=== PATIENT | female | born 2000 | race Caucasian/White ===

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

== ENCOUNTER 2020-05-22 23:24 | Emergency (ER) | payer BC ==
[~2020-05-22] VITALS: Ht 160 cm; Wt 80.0 kg
[~2020-05-22 23:24] MED LIST changes: +AMOX500C2 PO; +NEOM15OI TP; +OFLO5DRO33 RIGHT EAR; +SULF1TAB35 PO
[2020-05-23] MEDS ORDERED: FAMOTIDINE 20MG/2ML IV (PEPCID) IV STA (00:13)
[2020-05-23] MEDS ORDERED: LIDOCAINE 2% VISCOUS 15 ML UDC PO ONE (00:15)
[2020-05-23] MEDS ORDERED: ONDANSETRON 4 MG/2 ML (SDV) Z0FRAN IVP ONE (00:15)
[2020-05-23] MEDS ORDERED: LACTATED RINGERS 1,000 ML IV ONE (00:15)
[2020-05-23] MEDS ORDERED: ANTACID SUSP 30 ML UDC (MYLANTA) PO ONE (00:15)
--- NOTE | 2020-05-23 00:21 | ED Abdominal Pain ---
General Stated Complaint: ABD PAIN Source of Information: Patient Exam Limitations: No Limitations History of Present Illness Date Seen by Provider: May 22, 2020 Time Seen by Provider: 23:28 Initial Comments The patient presents to the ER by I private conveyance with her significant other chief complaint of right upper quadrant abdominal pain waking her from sleep around 1015. She ate jambalaya about 5:00 last night. She has no history of surgeries on her abdomen but she did have a pilonidal cyst done surgically. She is having some nausea with vomiting. She did not take any medicines because she is afraid she would vomit them back up. No significant history of medical problems or abdominal pain. She is on Loestrin oral contraceptives with her last menstrual period about 2 or 3 weeks ago she says. No fever or chills but she was shaking. She took her temperature and says it was normal. No diarrhea or constipation. Last oral intake was 1700. No sick contacts. Her significant other is not having any symptoms. She went to the bathroom and was able to pass gas but did not have any stool tonight and this did not give her any relief of pain. She rates the pain is about a 8 out of 10. She compares it to childbirth pain, cramping waxing and waning. Allergies and Home Medications Allergies Coded Allergies: No Known Drug Allergies (Unverified , 01/25/11) Home Medications Amoxicillin 500 Mg Capsule, 500 MG PO TID Prescribed by: FRANKY TEIXEIRA on 05/07/182006 Ofloxacin 5 Ml Drops, 5 DROPS RIGHT EAR BID Prescribed by: FRANKY TEIXEIRA on 05/07/182006 Patient Home Medication List Home Medication List Reviewed: Yes Review of Systems Review of Systems Constitutional: No chills, No fever, No malaise EENTM: No Blurred Vision, No Double Vision Respiratory: Denies Cough Cardiovascular: Denies Chest Pain, Denies Lightheadedness Gastrointestinal: Denies Constipated, Denies Diarrhea Genitourinary: Denies Burning, Denies Discharge Musculoskeletal: No back pain, No joint pain Skin: No pruritus, No rash Psychiatric/Neurological: Denies Depressed, Denies Headache All Other Systems Reviewed Negative Unless Noted: Yes Past Eedljxe-Jgugmq-Myvvpz Hx Patient Social History Alcohol Use: Rarely Uses Alcohol Beverage of Choice: Beer Drug of Choice: Denies Smoking Status: Never a Smoker 2nd Hand Smoke Exposure: No Recent Hopitalizations: No Immunizations Up To Date Tetanus Booster (TDap): Unknown PED Vaccines UTD: Yes Seasonal Allergies Seasonal Allergies: No Past Medical History Surgeries: Yes (i/d) Respiratory: No Cardiac: No Neurological: No Genitourinary: No Gastrointestinal: No Musculoskeletal: No Endocrine: No HEENT: No Cancer: No Psychosocial: No Integumentary: Yes Recent Skin Changes Blood Disorders: No Family Medical History Diabetes mellitus 19 FATHER 19 MOTHER Hypertension 19 FATHER 19 MOTHER No Pertinent Family Hx Physical Exam Vital Signs Vital Signs - First Documented 05/23/20 00:20 Temp 35.4 Pulse 107 Resp 18 B/P (MAP) 152/93 (112) Pulse Ox 99 O2 Delivery Room Air Capillary Refill : Height/Weight/BMI Height: 5'4.00" Weight: 180lbs. 0oz. 81.781178eo; 28.12 BMI Method:Stated General Appearance: WD/WN, moderate distress HEENT: PERRL/EOMI, pharynx normal Neck: full range of motion, normal inspection Respiratory: lungs clear, normal breath sounds, no respiratory distress, no accessory muscle use Cardiovascular: normal peripheral pulses, regular rate, rhythm Peripheral Pulses: 2+ Radial Pulses (R), 2+ Radial Pulses (L) Gastrointestinal: normal bowel sounds (Active), guarding, tenderness (Right u pper quadrant and epigastric region tender to palpation. Positive Acosta sign. Negative Rovsing sign, McBurney's point rebound tenderness, psoas sign or other mesenteric signs) Neurologic/Psychiatric: alert, normal mood/affect, oriented x 3 Skin: normal color, warm/dry Progress/Results/Core Measures Results/Orders Lab Results Laboratory Tests Test 05/23/20 00:18 05/23/20 00:25 Range/Units White Blood Count 9.0 4.3-11.0 10^3/uL Red Blood Count 5.10 3.80-5.11 10^6/uL Hemoglobin 13.7 11.5-16.0 g/dL Hematocrit 42 35-52 % Mean Corpuscular Volume 83 80-99 fL Mean Corpuscular Hemoglobin 27 25-34 pg Mean Corpuscular Hemoglobin Concent 33 32-36 g/dL Red Cell Distribution Width 12.2 10.0-14.5 % Platelet Count 332 130-400 10^3/uL Mean Platelet Volume 9.3 9.0-12.2 fL Immature Granulocyte % (Auto) 1 % Neutrophils (%) (Auto) 52 42-75 % Lymphocytes (%) (Auto) 37 12-44 % Monocytes (%) (Auto) 6 0-12 % Eosinophils (%) (Auto) 3 0-10 % Basophils (%) (Auto) 1 0-10 % Neutrophils # (Auto) 4.7 1.8-7.8 10^3/uL Lymphocytes # (Auto) 3.3 1.0-4.0 10^3/uL Monocytes # (Auto) 0.6 0.0-1.0 10^3/uL Eosinophils # (Auto) 0.3 0.0-0.3 10^3/uL Basophils # (Auto) 0.1 0.0-0.1 10^3/uL Immature Granulocyte # (Auto) 0.1 0.0-0.1 10^3/uL Sodium Level 140 135-145 MMOL/L Potassium Level 3.6 3.6-5.0 MMOL/L Chloride Level 107 98-107 MMOL/L Carbon Dioxide Level 23 21-32 MMOL/L Anion Gap 10 5-14 MMOL/L Blood Urea Nitrogen 10 7-18 MG/DL Creatinine 0.77 0.60-1.30 MG/DL Estimat Glomerular Filtration Rate > 60 BUN/Creatinine Ratio 13 Glucose Level 107 H 70-105 MG/DL Calcium Level 8.8 8.5-10.1 MG/DL Corrected Calcium 8.9 8.5-10.1 MG/DL Total Bilirubin 0.3 0.1-1.0 MG/DL Aspartate Amino Transf (AST/SGOT) 12 5-34 U/L Alanine Aminotransferase (ALT/SGPT) 18 0-55 U/L Alkaline Phosphatase 48 40-136 U/L C-Reactive Protein High Sensitivity 0.34 0.00-0.50 MG/DL Total Protein 7.0 6.4-8.2 GM/DL Albumin 3.9 3.2-4.5 GM/DL Lipase 33 8-78 U/L Urine Color YELLOW Urine Clarity SL CLOUDY Urine pH 7.0 5-9 Urine Specific [place] 1.020 1.016-1.022 Urine Protein NEGATIVE NEGATIVE Urine Glucose (UA) NEGATIVE NEGATIVE Urine Ketones NEGATIVE NEGATIVE Urine Nitrite NEGATIVE NEGATIVE Urine Bilirubin NEGATIVE NEGATIVE Urine Urobilinogen 0.2 < = 1.0 MG/DL Urine Leukocyte Esterase NEGATIVE NEGATIVE Urine RBC (Auto) NEGATIVE NEGATIVE Urine RBC NONE /HPF Urine WBC NONE /HPF Urine Squamous Epithelial Cells 5-10 /HPF Urine Crystals NONE /LPF Urine Bacteria NEGATIVE /HPF Urine Casts NONE /LPF Urine Mucus NEGATIVE /LPF Urine Culture Indicated NO My Orders Orders - YAS GALVEZ Ua Culture If Indicated (05/22/20 23:28) Urine Bedside (05/22/20 23:28) Ct Abdomen/Pelvis W (05/23/20 00:13) Ed Iv/Invasive Line Start (05/23/20 00:13) Lactated Ringers (Lr 1000 Ml Iv Solution (05/23/20 00:15) Ondansetron Injection (Zofran Injectio (05/23/20 00:15) Lidocaine 2% Viscous 15 Ml (Xylocaine Vi (05/23/20 00:15) Antacid Suspension (Mylanta Suspension (05/23/20 00:15) Famotidine Injection (Pepcid Injection) (05/23/20 00:13) Cbc With Automated Diff (05/23/20 00:13) Comprehensive Metabolic Panel (05/23/20 00:13) Lipase (05/23/20 00:13) Hs C Reactive Protein (05/23/20 00:13) Iohexol Injection (Omnipaque 350 Mg/Ml 1 (05/23/20 01:30) Ns (Ivpb) (Sodium Chloride 0.9% Ivpb Bag (05/23/20 01:30) Medications Given in ED Current Medications Medications Dose Ordered Sig/Tameka Route Start Time Stop Time Status Last Admin Dose Admin Al Hydrox/Mg Hydrox/Simethicone 30 ml ONCE ONCE PO 05/23/20 00:15 05/23/20 00:16 DC 05/23/20 00:31 30 ML Iohexol 100 ml ONCE ONCE IV 05/23/20 01:30 05/23/20 01:43 DC 05/23/20 01:25 100 ML Lactated Ringer's 1,000 ml @ 0 mls/hr Q0M ONCE IV 05/23/20 00:15 05/23/20 00:16 DC 05/23/20 00:26 1,000 MLS/HR Lidocaine HCl 15 ml ONCE ONCE PO 05/23/20 00:15 05/23/20 00:16 DC 05/23/20 00:31 15 ML Ondansetron HCl 4 mg ONCE ONCE IVP 05/23/20 00:15 05/23/20 00:16 DC 05/23/20 00:27 4 MG Sodium Chloride 100 ml ONCE ONCE IV 05/23/20 01:30 05/23/20 01:43 DC 05/23/20 01:25 80 ML Vital Signs/I&O 05/23/20 00:20 Temp 35.4 Pulse 107 Resp 18 B/P (MAP) 152/93 (112) Pulse Ox 99 O2 Delivery Room Air Progress Progress Note #1: Time: 00:23 Progress Note Suspect gallbladder, gastritis, pancreatitis, gastroenteritis. We will give her a GI cocktail and some Pepcid as well as a bag of fluids and get a CT of her abdomen and pelvis and she is tachycardic in the 120s and has pain that woke her from sleep. If this does not help her pain we will try some fentanyl or Toradol based on CT. Ultrasound is not available at this time. Progress Note #2: Time: 01:17 Progress Note Significant decrease of her pain from 8 to a 5 after Pepcid and GI cocktail. She is more comfortable now. Progress Note #3: Time: 02:12 Progress Note We discussed the options with the patient and she is familiar with Dr. Aviles and would like to follow-up with him this week to discuss having her gallbladder out. We discussed dietary changes. We did send her home with some hydrocodone and ondansetron. Return precautions were discussed. Diagnostic Imaging Diagonstic Imaging: CT (With IV contrast) Plain Films/CT/US/NM/MRI: abdomen, pelvis Comments No evidence of appendicitis. Cholelithiasis, follow-up HIDA scan could be performed. Reviewed: Reviewed [place] Study, Reviewed by Me Departure Impression Primary Impression: Cholelithiasis Qualified Codes: K80.20 - Calculus of gallbladder without cholecystitis without obstruction Additional Impression: Biliary colic Disposition: HOME, SELF-CARE Condition: Improved Departure-Patient Inst. Decision time for Depature: 02:00 Referrals: MARTA AVILES MD, JACQUELINE S DO (PCP/Family) Primary Care Physician Patient Instructions: Gallstones (DC) Add. Discharge Instructions: Drink plenty of fluids and avoid greasy spicy foods such as red meat, dairy, cheese yogurt, eggs etc. High-fiber diet, bland foods are recommended. Eat smaller meals. Pantoprazole 40 mg daily until you see the surgeon. Ondansetron/Zofran 1 tablet under the tongue every 6 hours as necessary for nausea and/or vomiting. Hydrocodone 1 tablet every 6 hours as necessary for severe breakthrough pain. Tums, Maalox, Rolaids as necessary for pain. Tylenol and Motrin as necessary for pain. Heating pads may be helpful. Return to the ER if your pain is intractable despite this or if you have intractable vomiting. Fever should also prompt you to return to the nearest ER. Call Dr. Aviles and request follow-up early this week. Scripts Ondansetron (Ondansetron Odt) 4 Mg Tab.rapdis 4 MG PO Q6H PRN for NAUSEA/VOMITING, #10 TAB 0 Refills Prov: YAS GALVEZ 05/23/20 Hydrocodone/Acetaminophen (Hydrocodone-Acetamin 5-325 mg) 1 Each Tablet 1 TAB PO Q6H PRN for PAIN-MODERATE (5-7), #10 TAB 0 Refills Prov: YAS GALVEZ 05/23/20 Work/School Note: Work Release Form Date Seen in the Emergency Department: May 23, 2020 Return to Work: May 24, 2020 Restrictions: No Restrictions Copy Copies To 1: MARTA AVILES MD, TITUS J May 23, 2020 00:21
[2020-05-23 00:30] LABS: BILIRUBIN,URINE NEGATIVE (NEGATIVE); CLARITY,URINE SL CLOUDY; COLOR,URINE YELLOW; GLUCOSE, URINE (UA) NEGATIVE (NEGATIVE); KETONES,URINE NEGATIVE (NEGATIVE); LEUKOCYTE ESTERASE ,URINE NEGATIVE (NEGATIVE); NITRITE,URINE NEGATIVE (NEGATIVE); PROTEIN,URINE NEGATIVE (NEGATIVE)
[2020-05-23 00:34] LABS: BASOPHILS # (AUTO) 0.1 10^3/uL (0.0-0.1); BASOPHILS % (AUTO) 1 % (0-10); EOSINOPHILS # (AUTO) 0.3 10^3/uL (0.0-0.3); EOSINOPHILS % (AUTO) 3 % (0-10); HEMATOCRIT 42 % (35-52); HEMOGLOBIN 13.7 g/dL (11.5-16.0); LYMPHOCYTES # (AUTO) 3.3 10^3/uL (1.0-4.0); LYMPHOCYTES % (AUTO) 37 % (12-44); MEAN CORPUSCULAR HEMOGLOBIN 27 pg (25-34); MEAN CORPUSCULAR HGB CONC 33 g/dL (32-36); MEAN CORPUSCULAR VOLUME 83 fL (80-99); MEAN PLATELET VOLUME 9.3 fL (9.0-12.2); MONOCYTES # (AUTO) 0.6 10^3/uL (0.0-1.0); MONOCYTES % (AUTO) 6 % (0-12); NEUTROPHILS # (AUTO) 4.7 10^3/uL (1.8-7.8); NEUTROPHILS % (AUTO) 52 % (42-75); PLATELET COUNT 332 10^3/uL (130-400)
[2020-05-23 00:39] LABS: ALBUMIN 3.9 GM/DL (3.2-4.5); CHLORIDE 107 MMOL/L (98-107); POTASSIUM 3.6 MMOL/L (3.6-5.0); SODIUM 140 MMOL/L (135-145)
[2020-05-23 00:39] LABS: BACTERIA,URINE NEGATIVE /HPF
[2020-05-23 00:40] LABS: CALCIUM 8.8 MG/DL (8.5-10.1)
[2020-05-23 00:41] LABS: GLUCOSE 107 MG/DL (70-105)
[2020-05-23 00:43] LABS: BILIRUBIN,TOTAL 0.3 MG/DL (0.1-1.0); CARBON DIOXIDE 23 MMOL/L (21-32)
[2020-05-23 00:45] LABS: ALKALINE PHOSPHATASE 48 U/L (40-136); CREATININE SERUM 0.77 MG/DL (0.60-1.30); GFR ESTIMATED > 60
[2020-05-23 00:46] LABS: BUN/CREATININE RATIO 13
[2020-05-23 00:48] LABS: ALANINE AMINOTRANSFERASE 18 U/L (0-55); LIPASE 33 U/L (8-78)
[2020-05-23] MEDS ORDERED: NS 100 ML (IVPB) BAG IV ONE (01:30)
[2020-05-23] MEDS ORDERED: IOHEXOL 350 MG/ML 100 ML (OMNIPAQUE 350) VIAL IV ONE (01:30)
[2020-05-23] MEDS ORDERED: ACHD5005 PO (02:17)
[2020-05-23] MEDS ORDERED: ONDA4TAB11 PO (02:17)
[2020-05-23] MEDS ORDERED: RX-ONDANSETRON 4 MG ODT (ZOFRAN) PPK #4 PO STA (02:19)
[2020-05-23] MEDS ORDERED: RX-HYDROCODONE/APAP 5/325 MG #4 TAB PK PO PRN (02:30)
[2020-05-23 02:35] VITALS: BP 137/99
--- NOTE | 2020-05-23 06:37 | Diagnostic Imaging Report ---
EXAMINATION: CT Abdomen and Pelvis with intravenous contrast. TECHNIQUE: Multiple contiguous axial images were obtained through the abdomen and pelvis after the uneventful administration of intravenous contrast. All CT scans use one or more of the following dose optimizing techniques: automated exposure control, MA and/or KvP adjustment based on a patient size and exam type, or iterative reconstruction. HISTORY: Right upper quadrant pain. COMPARISON: None available. FINDINGS: Limited views of the lower thorax are unremarkable. The liver is normal without focal lesion. There is no biliary ductal dilation. Gallbladder is partially contracted. Punctate calcification adjacent to the gallbladder is likely within the colon. No wall thickening or pericholecystic stranding. Pancreas is normal. Spleen is normal. Adrenal glands are normal. There are a few calcifications in the right kidney which may be intraparenchymal or small stones in the calyces. No suspicious renal lesions. There is no hydronephrosis. Urinary bladder is normal. Visualized bowel is normal in caliber without obstruction or inflammation. The appendix is normal. No free fluid or air. No abdominal or pelvic lymphadenopathy. Aorta is normal in caliber without aneurysm. There are no suspicious osseus lesions. IMPRESSION: 1. Partially contracted gallbladder, no CT evidence of cholecystitis, but if the patient's symptoms do suggest and further evaluation could be performed with Hida. Dictated by: Dictated on workstation # [id number]
== END 2020-05-23 02:36 | disposition home or self-care (01) ==
LOC: EDUNIT# 23:24 → ER 23:27
DX: K80.70 Calculus of gallbladder and bile duct without cholecystitis without obstruction (principal); Z79.3 Long term (current) use of hormonal contraceptives
CPT/HCPCS: 36415; 74177; 80053; 81000; 83690; 84703; 85025; 86141

== ENCOUNTER → 2020-05-27 | Outpatient (CLI) | payer BC ==
[~2020-05-27] MED LIST changes: +ONDA4TAB11 PO
--- NOTE | 2020-05-27 08:36 | Diagnostic Imaging Report ---
EXAM: RIGHT UPPER QUADRANT ULTRASOUND DATE: May 27, 2020. COMPARISON: CT abdomen pelvis May 23, 2020. INDICATION: 20-year-old female, right upper quadrant abdominal pain. PROCEDURE: Two-dimensional grayscale and color doppler ultrasound examination of the right upper quadrant is performed. FINDINGS: Liver: The liver is diffusely increased in echogenicity consistent with diffuse fatty infiltration of the liver. The outer liver contours are not nodular. There is no demonstrated focal liver lesion. The main portal vein is patent with normal directional flow and velocity. Bile ducts and gallbladder: There is no pericholecystic fluid, gallbladder wall thickening or gallstones. The gallbladder wall measures 0.2 cm. There is no intrahepatic or extrahepatic biliary ductal dilation. The common bile duct measures 0.4 cm. Right kidney: Unremarkable right kidney. No hydronephrosis. The right kidney measures 11.0 cm x 4.9 cm x 4.9 cm. Pancreas: The pancreas is not well seen. IMPRESSION: 1. Diffuse fatty infiltration of the liver. 2. No evidence of cholelithiasis or acute cholecystitis. 3. No biliary ductal dilation. Dictated by: Dictated on workstation # [id number]
== END ==
LOC: RAD 07:00
PROVIDERS: ATTEND Surgery
DX: K76.0 Fatty (change of) liver, not elsewhere classified (principal)
CPT/HCPCS: 76705

== ENCOUNTER → 2020-06-02 | Outpatient (CLI) | payer BC ==
[~2020-06-02] MED LIST changes: +CATHETER FLUSH 10 ML SYR IV PRN
--- NOTE | 2020-06-02 15:13 | Diagnostic Imaging Report ---
EXAMINATION: Hepatobiliary scan. DATE: June 02, 2020. INDICATION: 20-year-old female, right upper quadrant abdominal pain. COMPARISON: Right upper quadrant abdominal ultrasound May 27, 2020. CT abdomen/pelvis May 23, 2020. PROCEDURE: 5.39 mCi of Tc-99m Choletec was administered intravenously and serial anterior planar images over the liver and upper abdomen were obtained. FINDINGS: There is clearance of background activity by the liver indicating hepatocyte function. There is radiotracer excretion into the bile ducts with filling of the gallbladder and extension of radiotracer into small bowel. CCK was administered. Gallbladder ejection fraction was calculated to be 8.7%. IMPRESSION: 1. No evidence of acute cholecystitis. 2. Gallbladder ejection fraction of 9% which is abnormal and can be seen in the setting of biliary dyskinesia and/or chronic cholecystitis. Dictated by: Dictated on workstation # [id number]
== END ==
LOC: CARD 10:00
PROVIDERS: ATTEND Surgery
DX: R10.11 Right upper quadrant pain (principal); R93.2 Abnormal findings on diagnostic imaging of liver and biliary tract
CPT/HCPCS: 78227; A9537

== ENCOUNTER 2020-06-10 05:42 | Outpatient (CLI) | payer BC ==
[~2020-06-10] VITALS: Ht 162.6 cm; Wt 81.8 kg
[~2020-06-10 05:42] MED LIST changes: -CATHETER FLUSH 10 ML SYR IV PRN
[2020-06-10] MEDS ORDERED: BCP PO (09:44)
== END 2020-06-10 09:58 | disposition home or self-care (01) ==
LOC: PREOP 05:42
PROVIDERS: ATTEND Surgery
DX: Z01.818 Encounter for other preprocedural examination (principal)

== ENCOUNTER 2020-06-16 08:19 | Day surgery (SDC) | payer BC, OTHER ==
[~2020-06-16] VITALS: Ht 162.6 cm; Wt 81.8 kg
[2020-06-16] VITALS (13 sets, daily range): BP systolic 113–144; BP diastolic 75–95
[~2020-06-16 08:19] MED LIST changes: +BCP PO
[2020-06-16] MEDS ORDERED: LACTATED RINGERS 1,000 ML IV PRN (08:30)
[2020-06-16] MEDS ORDERED: ceFAZolin 2 GM IV Premixed 50 ML IV ONE (08:30)
[2020-06-16] MEDS ORDERED: LIDOCAINE/EPI 1%-1:200,000 (XYLOCAINE) 10 ML VIAL ONE (08:42)
[2020-06-16] MEDS ORDERED: MIDAZOLAM 2 MG/2 ML (VERSED) VIAL ONE (08:53)
[2020-06-16] MEDS ORDERED: NEOSTIGMINE 3 MG/3 ML VIAL ONE (08:53)
[2020-06-16] MEDS ORDERED: LIDOCAINE PF 2% 5 ML (XYLOCAINE) VIAL ONE (08:53)
[2020-06-16] MEDS ORDERED: GLYCOPYRROLATE 0.2 MG/ML (ROBINUL) 2 ML VIAL ONE (08:53)
[2020-06-16] MEDS ORDERED: ONDANSETRON 4 MG/2 ML (SDV) Z0FRAN ONE (08:53)
[2020-06-16] MEDS ORDERED: ROCURONIUM 10 MG/ML 5 ML SYRINGE IV ONE (08:53)
[2020-06-16] MEDS ORDERED: fentaNYL INJ 100 MCG/2 ML AMP ONE (08:53)
[2020-06-16] MEDS ORDERED: proPOfol 200 MG/20 ML (DIPRIVAN) VIAL IV ONE (08:53)
[2020-06-16] MEDS ORDERED: SEVOFLURANE (ULTANE) 15 ML INHAL SOLN ONE ×4 (08:53→10:34)
--- NOTE | 2020-06-16 08:55 | Progress Note-Pre Operative ---
Pre-Operative Progress Note H&P Reviewed The H&P was reviewed, patient examined and no changes noted. Date Seen by Provider: Jun 16, 2020 Time Seen by Provider: 08:50 Date H&P Reviewed: Jun 16, 2020 Time H&P Reviewed: 08:45 Pre-Operative Diagnosis: Symptomatic Biliary Dyskinesia HOLLY RODRIGUEZ JEWEL STAKER Jun 16, 2020 08:55
[2020-06-16] MEDS ORDERED: HYDR-3817 PO (08:57)
--- NOTE | 2020-06-16 08:57 | Discharge Inst-Surgical ---
D/C Lap Instructions-KIDO Reconcile Patient Problems Problems Reviewed?: Yes New, Converted, or Re-Newed RX: RX on Chart Follow Up Appt in 2 weeks Activity as tolerated No driving for 24 hours No driving while on pain medications Incentive Spirometry use every 2 hours while awake Regular Diet Symptoms to Report: Fever over 101 degree F, Nausea/Vomiting Infection Signs and Symptoms to report: Increased redness, Foul odor of wound, Increased drainage Bathing instructions: May shower Operative Area Clean/Dry; Keep incision clean/dry If any problems/questions: Contact your physician or go to Emergency Room HOLLY RODRIGUEZ APRN Jun 16, 2020 08:57
[2020-06-16] MEDS ORDERED: ACETAMINOPHEN 325 MG TABLET PO PRN (09:00)
[2020-06-16] MEDS ORDERED: morphine INJ 10 MG/ML 1ML (SYR OR VIAL) IVP PRN (09:00)
[2020-06-16] MEDS ORDERED: HYDROcodone/APAP 5 MG/325 MG (LORTAB) TAB PO ONE (09:00)
[2020-06-16] MEDS ORDERED: ONDANSETRON 4 MG/2 ML (SDV) Z0FRAN IVP PRN ×2 (09:00→11:00)
[2020-06-16] MEDS ORDERED: ceFAZolin 2 GM IV Premixed 50 ML ONE (09:20)
[2020-06-16] MEDS ORDERED: HYDROmorphone 2 MG/ML VIAL (DILAUDID) ONE (09:52)
[2020-06-16] MEDS ORDERED: PHENYLEPHRINE 100 MCG/ML 10 ML (ANESTHESIA) SYR ONE (10:34)
[2020-06-16] MEDS ORDERED: HYDROmorphone 2 MG/ML VIAL (DILAUDID) IV ONE (11:00)
--- NOTE | 2020-06-16 11:02 | Progress Note-Post Operative ---
Post-Operative Progess Note Surgeon (s)/Car Starter (s) Surgeon MARTA TIMMONS MD Car Starter: mary leblanc ATHLETICS DIRECTOR Pre-Operative Diagnosis Symptomatic Biliary Dyskinesia Post-Operative Diagnosis same Procedure & Operative Findings Date of Procedure 06/16/20 Procedure Performed/Findings laparoscopic cholecystectomy Anesthesia Type get Estimated Blood Loss Estimated blood loss (mL): minimal Specimens/Packing Specimens Removed gallbladder MARTA TIMMONS MD Jun 16, 2020 11:02
[2020-06-16] MEDS ORDERED: KETOROLAC 30 MG/ML VIAL ONE (11:19)
[2020-06-16] MEDS ORDERED: KETOROLAC 30 MG/ML VIAL IVP ONE (11:30)
[2020-06-16] MEDS ORDERED: HYDROcodone/APAP 5 MG/325 MG (LORTAB) TAB ONE (12:23)
--- NOTE | 2020-06-16 12:48 | Anesthesia-General Post-Op ---
General Patient Condition Mental Status/LOC: Same as Preop Cardiovascular: Satisfactory Nausea/Vomiting: Absent Respiratory: Satisfactory Pain: Controlled Complications: Absent Post Op Complications Complications None Follow Up Care/Instructions Patient Instructions None needed. Anesthesia/Patient Condition Patient Condition Patient is doing well, no complaints, stable vital signs, no apparent adverse anesthesia problems. No complications reported per nursing. D/C home per [facility] [place] Criteria: Yes CARA SHANKS CRNA Jun 16, 2020 12:48
--- NOTE | 2020-06-16 18:32 | OPERATIVE REPORT ---
DATE OF SERVICE: 06/16/2020 ATTENDING PRIMARY CARE PHYSICIAN: Wanda Graves DO PREOPERATIVE DIAGNOSIS: Symptomatic biliary dyskinesia. POSTOPERATIVE DIAGNOSIS: Symptomatic biliary dyskinesia. PROCEDURE: Laparoscopic cholecystectomy. SURGEON: Marta Timmons MD MACHINE TECHNICIAN: Jace Das APRN ANESTHESIA: General endotracheal. ESTIMATED BLOOD LOSS: Minimal. FINDINGS: Thickened gallbladder wall and no gallstones. DISPOSITION: The patient tolerated the procedure well. INDICATIONS: The patient is a 20-year-old female who has had pain in the right upper abdominal quadrant for the past few years, which was initially mild; however, she had a severe episode approximately 2 weeks ago and was evaluated in the Emergency Department. Initial CT scan report was consistent with cholelithiasis; however, this was overread as gallbladder wall thickening and no stones. She then underwent an ultrasound, which did not show any stones; however, HIDA scan showed a low ejection fraction of 14% consistent with symptomatic biliary dyskinesia. DESCRIPTION OF PROCEDURE: The patient was brought to the operating room, laid supine on the table. After adequate IV pain and sedative medications and general endotracheal intubation, the abdomen was prepped and draped in standard surgical fashion. A 0.5% Marcaine with epinephrine was then used to anesthetize the overlying skin in the left upper abdominal quadrant and a transverse skin incision made using 15 blade. An 0 silk suture was applied to the medial aspect incision for retraction and the Veress needle inserted with a low opening pressure of 0 mmHg. The abdomen was then insufflated to 15 mmHg pressure. The Veress needle removed and a 5 mm XL trocar placed followed by a 5 mm 45-degree angle laparoscope visualizing the peritoneal cavity. A 4-quadrant abdominal exploration was performed. There was a distended gallbladder, mild gallbladder wall thickening. A supraumbilical 10 mm port was then placed under direct visualization after the skin and peritoneal lining were anesthetized using 0.5% Marcaine with epinephrine and a transverse skin incision made using a 15 blade. In a similar manner, a right upper abdominal quadrant 5 mm port was placed. The patient was then placed in a reverse Trendelenburg position as well as plane right side up, left side down. The fundus of the gallbladder was then retracted anteriorly and superiorly. The hepatoduodenal ligament was then opened using blunt dissection as well as electrocautery on the hook instrument. The entire critical view of safety was identified including the triangle of Calot as well as the cystic duct and artery as the only two structures going into the gallbladder as well as the cystic plate behind the proximal gallbladder. A timeout was then taken and the cystic duct and artery were then clipped proximally and distally and cut with EndoShears. The gallbladder was then dissected off the liver bed using cautery on hook instrument with visualization of good hemostasis as well as no leaking ducts of Luschka. The gallbladder was removed through the 10 mm port site using an EndoCatch bag. A 10 mm port site fascia and peritoneum were then closed under direct visualization using a Damien-Natalie device and 0 Vicryl suture. The abdomen was desufflated and remaining ports removed. All skin incisions were closed using 4-0 Monocryl running subcuticular sutures. Wounds were then cleaned and covered with Dermabond. The patient tolerated the procedure well. We will start IV and oral pain medication as well as a clear liquid diet. Once she is tolerating clears, has good pain control with oral pain medication and is ambulating well, we will discharge her home. She will be instructed to do no heavy lifting or exertion for the next two weeks. Job ID: [id number] DocumentID: [id number] Dictated Date: 06/16/2020 11:08:14 Well Driller Date: 06/16/2020 18:31:54 Dictated By: MARTA TIMMONS MD
== END 2020-06-16 13:20 | disposition home or self-care (01) ==
LOC: SDC 08:19
PROVIDERS: ATTEND Surgery
DX: K81.1 Chronic cholecystitis (principal); K82.8 Other specified diseases of gallbladder; K21.9 Gastro-esophageal reflux disease without esophagitis; Z79.899 Other long term (current) drug therapy; Z83.3 Family history of diabetes mellitus; Z82.49 Family history of ischemic heart disease and other diseases of the circulatory system
CPT/HCPCS: 84703; 87081; 88304

== ENCOUNTER 2020-08-06 19:06 | Inpatient (IN) | payer BC, OTHER ==
[~2020-08-06] VITALS: Ht 165.1 cm; Wt 82.5 kg
[~2020-08-06 19:06] MED LIST changes: +HYDR-3817 PO
[2020-08-06] MEDS ORDERED: LACTATED RINGERS 1,000 ML IV ONE (19:15)
[2020-08-06] MEDS ORDERED: ONDANSETRON 4 MG/2 ML (SDV) Z0FRAN IVP ONE ×2 (19:15→20:45)
--- NOTE | 2020-08-06 19:21 | ED Abdominal Pain ---
General Stated Complaint: ABDOMINAL PAIN Source of Information: Patient History of Present Illness Date Seen by Provider: Aug 06, 2020 Time Seen by Provider: 19:09 Initial Comments PT ARRIVES VIA POV FROM HOME C/O RLQ PAIN SINCE Saturday08/04/20 PAIN IS GRADUALLY GETTING WORSE PAIN IS CONSTANT PAIN IS WORSE WITH STRETCHING OUT, EASED A LITTLE WITH KEEPING HIPS AND KNEES FLEXED NO RADIATION OF PAIN + NAUSEA SINCE SATURDAY MORNING, NO VOMITING. HAD A DONUT AT 10 AM, HAS HAD A FEW CRACKERS TO EAT TODAY---DECREASED APPETITE HAS BEEN DRINKING LIQUIDS WELL HAD SMALL BM TODAY, AND BM'S HAVE BEEN SMALL THE LAST FEW DAYS NO URINARY SYMPTOMS NO FEVER HAS BEEN DIZZY SINCE SATURDAY EVENING HAS NOT TAKEN ANYTHING FOR PAIN IS ON HER PERIOD NOW. ON OCP'S HAD CHOLECYSTECTOMY 06/16/[address] TIMMONS NO OTHER ABDOMINAL SURGERIES NO GI OR PROBLEMS PCP: DR. VALDEZ Allergies and Home Medications Allergies Coded Allergies: No Known Drug Allergies (Unverified , 01/25/11) Home Medications Hydrocodone/Acetaminophen 1 Each Tablet, 1-2 EACH PO Q4H PRN for PAIN-MODERATE (5-7) Prescribed by: HOLLY RODRIGUEZ on 06/16/20 0857 Hydrocodone/Acetaminophen 1 Each Tablet, 1 EACH PO Q4H Prescribed by: MARTA TIMMONS on 08/06/20 2223 [Bcp] , 1 TAB PO DAILY, (Reported) Patient Home Medication List Home Medication List Reviewed: Yes Review of Systems Review of Systems Constitutional: see HPI, dizziness; No fever Respiratory: No Symptoms Reported Cardiovascular: No Symptoms Reported Gastrointestinal: See HPI, Abdominal Pain; Denies Constipated, Denies Diarrhea; Nausea, Poor Appetite; Denies Poor Fluid Intake, Denies Vomiting Genitourinary: No Symptoms Reported Musculoskeletal: no symptoms reported; No back pain Skin: no symptoms reported Psychiatric/Neurological: No Symptoms Reported Endocrine: No Symptoms Reported Hematologic/Lymphatic: No Symptoms Reported Past Srktyjh-Ttdsnr-Umaezd Hx Past Med/Social Hx: Reviewed and Corrections made Patient Social History Alcohol Use: Occasionally Uses Alcohol Beverage of Choice: Beer Drug of Choice: Denies Smoking Status: Never a Smoker 2nd Hand Smoke Exposure: No Recent Hopitalizations: No Immunizations Up To Date Tetanus Booster (TDap): Unknown PED Vaccines UTD: No Seasonal Allergies Seasonal Allergies: No Past Medical History Surgeries: Yes (PILONDIAL CYST 2017; WISDOM TEETH 03/2020; JIL 06/16/20) Gallbladder Respiratory: No Cardiac: No Neurological: No Reproductive Disorders: No Genitourinary: No Gastrointestinal: Yes (S/P JIL 06/16/20) Gall Bladder Disease Musculoskeletal: No Endocrine: No HEENT: Yes (WISDOM TEETH REMOVED 03/2020) Cancer: No Psychosocial: No Integumentary: Yes (PILONIDAL CYST REMOVED 2016) Blood Disorders: No Family Medical History Diabetes mellitus 19 FATHER 19 MOTHER Hypertension 19 FATHER 19 MOTHER No Pertinent Family Hx Physical Exam Vital Signs Vital Signs - First Documented 08/06/20 19:11 Temp 35.9 Pulse 110 Resp 22 B/P (MAP) 146/111 (123) Capillary Refill : Height/Weight/BMI Height: 5'4.00" Weight: 180lbs. 0oz. 81.435302sa; 30.93 BMI Method:Stated General Appearance: WD/WN, no apparent distress, other (WALKS SLIGHTLY BENT AT WAIST, HOLDING RLQ. SITTING PERUVIAN-STYLE, BUT SPLINTING ABDOMEN WITH A PILLOW. ) Respiratory: normal breath sounds, no respiratory distress, no accessory muscle use Cardiovascular: regular rate, rhythm, no murmur Gastrointestinal: normal bowel sounds, soft, no organomegaly, no pulsatile mass, tenderness (DIFFUSE RIGHT SIDED, EPIGASTRIC, SUPRAPUBIC AND LLQ TENDERNESS, BUT IS MOST TENDER IN RLQ. 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2 fL Immature Granulocyte % (Auto) 0 % Neutrophils (%) (Auto) 46 42-75 % Lymphocytes (%) (Auto) 44 12-44 % Monocytes (%) (Auto) 6 0-12 % Eosinophils (%) (Auto) 3 0-10 % Basophils (%) (Auto) 1 0-10 % Neutrophils # (Auto) 3.5 1.8-7.8 10^3/uL Lymphocytes # (Auto) 3.4 1.0-4.0 10^3/uL Monocytes # (Auto) 0.5 0.0-1.0 10^3/uL Eosinophils # (Auto) 0.2 0.0-0.3 10^3/uL Basophils # (Auto) 0.1 0.0-0.1 10^3/uL Immature Granulocyte # (Auto) 0.0 0.0-0.1 10^3/uL Sodium Level 138 135-145 MMOL/L Potassium Level 3.3 L 3.6-5.0 MMOL/L Chloride Level 106 98-107 MMOL/L Carbon Dioxide Level 20 L 21-32 MMOL/L Anion Gap 12 5-14 MMOL/L Blood Urea Nitrogen 9 7-18 MG/DL Creatinine 0.79 0.60-1.30 MG/DL Estimat Glomerular Filtration Rate > 60 BUN/Creatinine Ratio 11 Glucose Level 106 H 70-105 MG/DL Calcium Level 9.2 8.5-10.1 MG/DL Corrected Calcium 9.0 8.5-10.1 MG/DL Total Bilirubin 0.5 0.1-1.0 MG/DL Aspartate Amino Transf (AST/SGOT) 20 5-34 U/L Alanine Aminotransferase (ALT/SGPT) 27 0-55 U/L Alkaline Phosphatase 57 40-136 U/L Total Protein 7.7 6.4-8.2 GM/DL Albumin 4.2 3.2-4.5 GM/DL Amylase Level 33 25-125 U/L Lipase 29 8-78 U/L Urine Color YELLOW Urine Clarity CLEAR Urine pH 6.0 5-9 Urine Specific Burton >=1.030 1.016-1.022 Urine Protein 1+ H NEGATIVE Urine Glucose (UA) NEGATIVE NEGATIVE Urine Ketones NEGATIVE NEGATIVE Urine Nitrite NEGATIVE NEGATIVE Urine Bilirubin NEGATIVE NEGATIVE Urine Urobilinogen 1.0 < = 1.0 MG/DL Urine Leukocyte Esterase NEGATIVE NEGATIVE Urine RBC (Auto) 2+ H NEGATIVE Urine RBC 0-2 /HPF Urine WBC 0-2 /HPF Urine Squamous Epithelial Cells 0-2 /HPF Urine Crystals NONE /LPF Urine Bacteria NEGATIVE /HPF Urine Casts PRESENT /LPF Urine Red Blood Cell Casts 0-2 H /LPF Urine Mucus SMALL H /LPF Urine Culture Indicated NO My Orders Orders - MARIAJOSE MORENO DO Ed Iv/Invasive Line Start (08/06/20 19:14) Urine Bedside (08/06/20 19:14) Amylase (08/06/20 19:14) Cbc With Automated Diff (08/06/20 19:14) Comprehensive Metabolic Panel (08/06/20 19:14) Lipase (08/06/20 19:14) Ua Culture If Indicated (08/06/20 19:14) Ed Iv/Invasive Line Start (08/06/20 19:14) Lactated Ringers (Lr 1000 Ml Iv Solution (08/06/20 19:15) Ondansetron Injection (Zofran Injectio (08/06/20 19:15) Ct Abd/Pelv W (Appendicitis) (08/06/20 19:53) Iohexol Injection (Omnipaque 350 Mg/Ml 1 (08/06/20 20:00) Received Contrast (Hold Metformin- Contr (08/06/20 20:00) Ns (Ivpb) (Sodium Chloride 0.9% Ivpb Bag (08/06/20 20:00) Ondansetron Injection (Zofran Injectio (08/06/20 20:45) Medications Given in ED Current Medications Medications Dose Ordered Sig/Tameka Route Start Time Stop Time Status Last Admin Dose Admin Iohexol 100 ml ONCE ONCE IV 08/06/20 20:00 08/06/20 20:02 DC 08/06/20 20:11 100 ML Lactated Ringer's 1,000 ml @ 0 mls/hr Q0M ONCE IV 08/06/20 19:15 08/06/20 19:16 DC 08/06/20 19:37 1,000 MLS/HR Ondansetron HCl 4 mg ONCE ONCE IVP 08/06/20 19:15 08/06/20 19:16 DC 08/06/20 19:37 4 MG Ondansetron HCl 4 mg ONCE ONCE IVP 08/06/20 20:45 08/06/20 20:46 DC 08/06/20 20:43 4 MG Sodium Chloride 100 ml ONCE ONCE IV 08/06/20 20:00 08/06/20 20:02 DC 08/06/20 20:11 80 ML Vital Signs/I&O 08/06/20 19:11 Temp 35.9 Pulse 110 Resp 22 B/P (MAP) 146/111 (123) 08/07/20 00:00 Intake Total 1000 ml Balance 1000 ml Progress Progress Note : Progress Note GIVEN IV FLUIDS, ZOFRAN AND TORADOL WITH IMPROVEMENT IN SYMPTOMS Diagnostic Imaging Comments CT ABDOMEN/PELVIS--PER RADIOLOGIST REPORT AT 2048 FINDINGS: Limited views of the lower thorax are unremarkable. The liver is normal without focal lesion. There is no biliary ductal dilation. Gallbladder is surgically absent. Pancreas is normal. Spleen is normal. Adrenal glands are normal. Right renal calcification is unchanged. No suspicious renal lesion. There is no hydronephrosis. Urinary bladder is normal. Uterus and adnexa are normal for age. Visualized bowel is normal in caliber without obstruction or inflammation. The appendix is normal. No free fluid or air. No abdominal or pelvic lymphadenopathy. Aorta is normal in caliber without aneurysm. There is no suspicious osseus lesion. IMPRESSION: No acute abnormality in the abdomen or pelvis. + APPENDICOLITH NOTED. Reviewed: Reviewed by Me, Discussed w/Radiologist Departure Communication (Admissions) 2049--SPOKE WITH DR. TIMMONS, ACCEPTS PT FOR ADMIT. ORDERS NOTED Impression Primary Impression: RLQ abdominal pain Additional Impression: Appendicolith Disposition: ADMITTED INPATIENT Condition: Stable Admissions Decision to Admit Reason: Admit from ER (General) Decision to Admit/Date: Aug 06, 2020 Time/Decision to Admit Time: 20:50 Departure-Patient Inst. Referrals: MYAH VALDEZ DO (PCP/Family) Primary Care Physician Scripts Hydrocodone/Acetaminophen (Hydrocodone-Acetamin 7.5-325) 1 Each Tablet 1 EACH PO Q4H, #35 TAB Prov: MARTA TIMMONS MD 08/06/20 MARIAJOSE MORENO DO Aug 06, 2020 19:21
[2020-08-06 19:40] LABS: BASOPHILS # (AUTO) 0.1 10^3/uL (0.0-0.1); BASOPHILS % (AUTO) 1 % (0-10); EOSINOPHILS # (AUTO) 0.2 10^3/uL (0.0-0.3); EOSINOPHILS % (AUTO) 3 % (0-10); HEMATOCRIT 43 % (35-52); HEMOGLOBIN 14.4 g/dL (11.5-16.0); LYMPHOCYTES # (AUTO) 3.4 10^3/uL (1.0-4.0); LYMPHOCYTES % (AUTO) 44 % (12-44); MEAN CORPUSCULAR HEMOGLOBIN 27 pg (25-34); MEAN CORPUSCULAR HGB CONC 34 g/dL (32-36); MEAN CORPUSCULAR VOLUME 81 fL (80-99); MEAN PLATELET VOLUME 9.4 fL (9.0-12.2); MONOCYTES # (AUTO) 0.5 10^3/uL (0.0-1.0); MONOCYTES % (AUTO) 6 % (0-12); NEUTROPHILS # (AUTO) 3.5 10^3/uL (1.8-7.8); NEUTROPHILS % (AUTO) 46 % (42-75); PLATELET COUNT 341 10^3/uL (130-400); WHITE BLOOD COUNT 7.7 10^3/uL (4.3-11.0)
[2020-08-06 19:46] LABS: BILIRUBIN,URINE NEGATIVE (NEGATIVE); CLARITY,URINE CLEAR; COLOR,URINE YELLOW; GLUCOSE, URINE (UA) NEGATIVE (NEGATIVE); KETONES,URINE NEGATIVE (NEGATIVE); LEUKOCYTE ESTERASE ,URINE NEGATIVE (NEGATIVE); NITRITE,URINE NEGATIVE (NEGATIVE); PROTEIN,URINE 1+ (NEGATIVE)
[2020-08-06 19:48] LABS: ALBUMIN 4.2 GM/DL (3.2-4.5)
[2020-08-06 19:49] LABS: AMYLASE 33 U/L (25-125); CALCIUM 9.2 MG/DL (8.5-10.1)
[2020-08-06 19:50] LABS: GLUCOSE 106 MG/DL (70-105); TOTAL PROTEIN 7.7 GM/DL (6.4-8.2)
[2020-08-06 19:51] LABS: CARBON DIOXIDE 20 MMOL/L (21-32)
[2020-08-06 19:52] LABS: BILIRUBIN,TOTAL 0.5 MG/DL (0.1-1.0)
[2020-08-06 19:52] LABS: BACTERIA,URINE NEGATIVE /HPF; RBC,URINE 0-2 /HPF; RED BLOOD CELL CASTS,URINE 0-2 /LPF; SQUAMOUS EPITHELIAL CELL,UR 0-2 /HPF; WBC,URINE 0-2 /HPF
[2020-08-06 19:54] LABS: ALKALINE PHOSPHATASE 57 U/L (40-136)
[2020-08-06 19:57] LABS: ALANINE AMINOTRANSFERASE 27 U/L (0-55); LIPASE 29 U/L (8-78)
[2020-08-06] MEDS ORDERED: IOHEXOL 350 MG/ML 100 ML (OMNIPAQUE 350) VIAL IV ONE (20:00)
[2020-08-06] MEDS ORDERED: HOLD METFORMIN - RECEIVED CONTRAST 20 ML VIAL IV SCH (20:00)
[2020-08-06] MEDS ORDERED: NS 100 ML (IVPB) BAG IV ONE (20:00)
[2020-08-06 20:14] LABS: BUN/CREATININE RATIO 11; CHLORIDE 106 MMOL/L (98-107); CREATININE SERUM 0.79 MG/DL (0.60-1.30); GFR ESTIMATED > 60; POTASSIUM 3.3 MMOL/L (3.6-5.0); SODIUM 138 MMOL/L (135-145)
--- NOTE | 2020-08-06 20:45 | Diagnostic Imaging Report ---
EXAMINATION: CT abdomen and pelvis with intravenous contrast. TECHNIQUE: Multiple contiguous axial images were obtained through the abdomen and pelvis after the uneventful administration of intravenous contrast. All CT scans use one or more of the following dose optimizing techniques: automated exposure control, MA and/or KvP adjustment based on patient size and exam type or iterative reconstruction. HISTORY: Right lower quadrant pain. COMPARISON: 05/23/2020. FINDINGS: Limited views of the lower thorax are unremarkable. The liver is normal without focal lesion. There is no biliary ductal dilation. Gallbladder is surgically absent. Pancreas is normal. Spleen is normal. Adrenal glands are normal. Right renal calcification is unchanged. No suspicious renal lesion. There is no hydronephrosis. Urinary bladder is normal. Uterus and adnexa are normal for age. Visualized bowel is normal in caliber without obstruction or inflammation. The appendix is normal. No free fluid or air. No abdominal or pelvic lymphadenopathy. Aorta is normal in caliber without aneurysm. There is no suspicious osseus lesion. IMPRESSION: No acute abnormality in the abdomen or pelvis. Dictated by: Dictated on workstation # [id number]
[2020-08-06] MEDS ORDERED: KETOROLAC 30 MG/ML VIAL IVP ONE (21:00)
[2020-08-06] MEDS ORDERED: CIPROFLOXACIN IV 400MG/200ML 200 ML IV ONE (21:00)
[2020-08-06] MEDS ORDERED: metroNIDAZOLE 500MG/100ML IVPB 100 ML IV ONE (21:00)
[2020-08-06 21:45] VITALS: BP 165/99
[2020-08-06] MEDS ORDERED: fentaNYL INJ 100 MCG/2 ML AMP IVP PRN (22:00)
[2020-08-06] MEDS ORDERED: KETOROLAC 30 MG/ML VIAL IVP PRN (22:00)
[2020-08-06] MEDS ORDERED: ONDANSETRON 4 MG/2 ML (SDV) Z0FRAN IVP PRN (22:00)
--- NOTE | 2020-08-06 22:20 | Progress Note-Pre Operative ---
Pre-Operative Progress Note H&P Reviewed The H&P was reviewed, patient examined and no changes noted. Date Seen by Provider: Aug 06, 2020 Time Seen by Provider: 22:20 Date H&P Reviewed: Aug 06, 2020 Time H&P Reviewed: 22:20 Pre-Operative Diagnosis: right lower abd quadrant pain, appendicolith MARTA TIMMONS MD Aug 06, 2020 22:20
[2020-08-06] MEDS ORDERED: HYDR-3817 PO (22:23)
--- NOTE | 2020-08-06 22:23 | Discharge Inst-Surgical ---
D/C Lap Instructions-IAIN New, Converted, or Re-Newed RX: RX on Chart Follow Up Appt in 2 weeks Activity as tolerated No driving for 24 hours No driving while on pain medications Incentive Spirometry use every 2 hours while awake Regular Diet Symptoms to Report: Fever over 101 degree F, Nausea/Vomiting Infection Signs and Symptoms to report: Increased redness, Foul odor of wound, Increased drainage Bathing instructions: May shower Operative Area Clean/Dry; Keep incision clean/dry If any problems/questions: Contact your physician or go to Emergency Room MARTA TIMMONS MD Aug 06, 2020 22:23
--- NOTE | 2020-08-06 22:44 | HISTORY AND PHYSICAL ---
DATE OF SERVICE: ATTENDING PRIMARY CARE PHYSICIAN: Wanda Graves DO HISTORY OF PRESENT ILLNESS: The patient is a 20-year-old female who presented to the Emergency Department with a 2-day history of pain in the right lower abdominal quadrant. She states that this was initially mild; however, has gradually worsened over time. She states that the pain is now constant and localized in the right lower abdominal quadrant. She states that upon hip extension, her pain is worse and there is less pain upon flexion of the knees and hips. She states that she has had some mild nausea; however, no vomiting. She also does report decreased appetite. She does not report any fever nor chills. A CT scan was performed, which did not show any dilatation or inflammation of the appendix; however, an appendicolith was identified. This is likely consistent with an early appendicitis. PAST MEDICAL HISTORY: None. PAST SURGICAL HISTORY: Pilonidal cystectomy 2016, laparoscopic cholecystectomy 06/16/2020. ALLERGIES: No known drug allergies. MEDICATIONS: Oral contraceptive pill daily. SOCIAL HISTORY: Negative smoke, social alcohol. FAMILY HISTORY: Mother, father, diabetes and hypertension. VITAL SIGNS: Temperature 35.9, blood pressure 146/111, pulse 110, respirations 22. Pulse ox 98% on room air. REVIEW OF SYSTEMS: This is a well-nourished female, currently in mild discomfort; however, tolerable. She does not report any shortness of breath, no difficulty in breathing. No chest pain, palpitations, diaphoresis. Intermittent nausea, no vomiting and anorexia. She did have small bowel movement earlier today. No red blood per rectum, no dark tarry stools. No fever, chills, no recent inadvertent weight loss. All other review of systems negative. PHYSICAL EXAMINATION: CHEST: Clear. Good breath sounds bilaterally. HEART: Regular, no murmurs. EXTREMITIES: No lower extremity edema, negative Homans sign. HEENT: No scleral icterus. NECK: No cervical lymphadenopathy. ABDOMEN: Soft, nondistended. There is pain in the right lower abdominal quadrant at McBurney's point with voluntary guarding, no rebound. No hernias. SKIN: Warm, dry. LABORATORY DATA: WBC 7.7, hemoglobin 14.4, hematocrit 43, platelets 341. BUN 9, creatinine 0.79. Liver function enzymes normal. ASSESSMENT AND PLAN: A 20-year-old female with an appendicolith and likely early acute appendicitis. We will proceed with a diagnostic laparoscopy as well as a laparoscopic appendectomy. Job ID: [id number] DocumentID: [id number] Dictated Date: 08/06/2020 22:19:17 Teletype Adjuster Date: 08/06/2020 22:43:42 Dictated By: MARTA TIMMONS MD
[2020-08-06] MEDS: D5 1/2 NS W/KCL 20 MEQ 1000 ML IV SCH (23:00)
[2020-08-06] MEDS: HYDROcodone/APAP 7.5 MG/325 MG (LORTAB, LORCET PLUS) TABLET PO PRN (23:01)
[2020-08-07] VITALS (12 sets, daily range): BP systolic 118–127; BP diastolic 70–84
[2020-08-07] MEDS: D5 1/2 NS W/KCL 20 MEQ 1000 ML IV SCH (04:43)
[2020-08-07 05:01] LABS: BASOPHILS # (AUTO) 0.1 10^3/uL (0.0-0.1); BASOPHILS % (AUTO) 1 % (0-10); EOSINOPHILS # (AUTO) 0.3 10^3/uL (0.0-0.3); EOSINOPHILS % (AUTO) 4 % (0-10); HEMATOCRIT 42 % (35-52); HEMOGLOBIN 13.6 g/dL (11.5-16.0); LYMPHOCYTES # (AUTO) 3.6 10^3/uL (1.0-4.0); LYMPHOCYTES % (AUTO) 46 % (12-44); MEAN CORPUSCULAR HEMOGLOBIN 27 pg (25-34); MEAN CORPUSCULAR HGB CONC 33 g/dL (32-36); MEAN CORPUSCULAR VOLUME 82 fL (80-99); MEAN PLATELET VOLUME 9.6 fL (9.0-12.2); MONOCYTES # (AUTO) 0.6 10^3/uL (0.0-1.0); MONOCYTES % (AUTO) 7 % (0-12); NEUTROPHILS # (AUTO) 3.2 10^3/uL (1.8-7.8); NEUTROPHILS % (AUTO) 41 % (42-75); PLATELET COUNT 304 10^3/uL (130-400); WHITE BLOOD COUNT 7.7 10^3/uL (4.3-11.0)
[2020-08-07] MEDS ORDERED: CIPROFLOXACIN 400 MG/D5W 200 ML (PRE-MIX) IV SCH (09:00)
[2020-08-07] MEDS ORDERED: metroNIDAZOLE 500 MG/100 ML IVPB (PRE-MIX) IV SCH (09:00)
[2020-08-07] MEDS ORDERED: LIDOCAINE/EPI 1%-1:100,000 (XYLOCAINE) 20ML ONE (09:33)
[2020-08-07] MEDS ORDERED: ONDANSETRON 4 MG/2 ML (SDV) Z0FRAN ONE (09:34)
[2020-08-07] MEDS ORDERED: ROCURONIUM 10 MG/ML 5 ML SYRINGE IV ONE (09:34)
[2020-08-07] MEDS ORDERED: LIDOCAINE PF 2% 5 ML (XYLOCAINE) VIAL ONE (09:34)
[2020-08-07] MEDS ORDERED: proPOfol 200 MG/20 ML (DIPRIVAN) VIAL IV ONE (09:34)
[2020-08-07] MEDS ORDERED: fentaNYL INJ 100 MCG/2 ML AMP ONE (09:34)
[2020-08-07] MEDS ORDERED: SEVOFLURANE (ULTANE) 15 ML INHAL SOLN ONE ×3 (09:34→11:21)
[2020-08-07] MEDS ORDERED: MIDAZOLAM 2 MG/2 ML (VERSED) VIAL ONE (09:35)
[2020-08-07] MEDS ORDERED: VANCOMYCIN 1000 MG/VIAL ONE (10:36)
[2020-08-07] MEDS ORDERED: HYDROmorphone 2 MG/ML VIAL (DILAUDID) ONE ×2 (10:54→11:03)
[2020-08-07] MEDS ORDERED: LACTATED RINGERS 1,000 ML IV PRN (11:00)
[2020-08-07] MEDS ORDERED: PROMETHAZINE INJ 25 MG/ML (PHENERGAN) AMP ONE (11:03)
[2020-08-07] MEDS ORDERED: NEOSTIGMINE 3 MG/3 ML VIAL ONE (11:20)
[2020-08-07] MEDS ORDERED: GLYCOPYRROLATE 0.2 MG/ML (ROBINUL) 2 ML VIAL ONE (11:20)
[2020-08-07] MEDS ORDERED: KETOROLAC 30 MG/ML VIAL ONE (11:21)
--- NOTE | 2020-08-07 11:37 | Progress Note-Post Operative ---
Post-Operative Progess Note Surgeon (s)/Director Of Recreation Therapy (s) Surgeon MARTA TIMMONS MD Director Of Recreation Therapy: hiram ricks [employer] Pre-Operative Diagnosis right lower abd quadrant pain, appendicolith Post-Operative Diagnosis acute appendicitis Procedure & Operative Findings Date of Procedure 08/07/20 Procedure Performed/Findings diagnostic laparoscopy, laparoscopic appendectomy Anesthesia Type get Estimated Blood Loss Estimated blood loss (mL): minimal Specimens/Packing Specimens Removed appendix MARTA TIMMONS MD Aug 07, 2020 11:37
[2020-08-07] MEDS ORDERED: HYDROmorphone 2 MG/ML VIAL (DILAUDID) IV ONE (12:00)
[2020-08-07] MEDS ORDERED: ONDANSETRON 4 MG/2 ML (SDV) Z0FRAN IVP PRN (12:00)
--- NOTE | 2020-08-07 12:08 | Anesthesia-General Post-Op ---
General Patient Condition Mental Status/LOC: Same as Preop Cardiovascular: Satisfactory Nausea/Vomiting: Absent Respiratory: Satisfactory Pain: Controlled Complications: Absent Post Op Complications Complications None Follow Up Care/Instructions Patient Instructions None needed. Anesthesia/Patient Condition Patient Condition Patient is doing well, no complaints, stable vital signs, no apparent adverse anesthesia problems. No complications reported per nursing. D/C home per [facility] [place] Criteria: Yes CARA SHANKS CRNA Aug 07, 2020 12:08
[2020-08-07] MEDS: HYDROcodone/APAP 7.5 MG/325 MG (LORTAB, LORCET PLUS) TABLET PO PRN (13:54)
[2020-08-07] MEDS ORDERED: ONDANSETRON 4 MG (ZOFRAN) ORAL DISSOLVE TAB PO PRN (15:30)
--- NOTE | 2020-08-07 20:35 | OPERATIVE REPORT ---
DATE OF SERVICE: 08/07/2020 ATTENDING PRIMARY CARE PHYSICIAN: Wanda Graves DO PREOPERATIVE DIAGNOSIS: Right lower abdominal quadrant pain with an appendicolith. POSTOPERATIVE DIAGNOSIS: Acute appendicitis, no perforation. PROCEDURE: Diagnostic laparoscopy, laparoscopic appendectomy. SURGEON: Marta Timmons MD. METAL ROOFER: Lauren Mulligan APRN. ANESTHESIA: General endotracheal. ESTIMATED BLOOD LOSS: Minimal. FINDINGS: Long tortuous appendix with increased turgor pressure consistent with an early acute appendicitis, no perforation. DISPOSITION: The patient tolerated the procedure well. INDICATIONS: The patient is a 20-year-old female who presented to the Emergency Department with a 2-day history of right lower abdominal quadrant pain. She states that this was initially mild; however, gradually worsened over time and became more persistent. Upon presentation, she had localized pain in the right lower abdominal quadrant. She also had reported worsening pain upon hip extension. She states no nausea or vomiting; however, has had decreased appetite. She does not report any fever nor chills at home. A CT scan was performed, which did show an appendicolith likely consistent with an early appendicitis. DESCRIPTION OF PROCEDURE: The patient was brought to the operating room, laid supine on the table. After adequate IV pain and sedative medications and general endotracheal intubation, the abdomen was prepped and draped in standard surgical fashion. A 0.5% Marcaine with epinephrine was then used to anesthetize overlying skin in the left upper abdominal quadrant and a transverse skin incision made using a 15 blade. An 0 silk suture was applied to the medial aspect incision for retraction and a Veress needle inserted with a low opening pressure of 0 mmHg and the abdomen was then insufflated to 15 mmHg pressure. The Veress needle removed and a 5 mm XL trocar placed followed by a 5 mm 45-degree angle laparoscope visualizing the peritoneal cavity. A 4-quadrant abdominal exploration was performed. The uterus and ovaries appeared normal, small bowel and colon appeared normal as well. There was a long tortuous retrocecal appendix with increased turgor pressure of the appendix consistent with early appendicitis. The white lines of Toldt were then taken down using electrocautery on the hook instrument. Once the appendix was freed, a window between the base of the appendix and the mesoappendix was created using a [place] dissector. The appendix was then stapled and transected at the cecal base using a LISSETH 45 mm stapler with a 2.5 mm thickness load. The mesoappendix was then stapled and transected with the same stapler with a 2.0 mm thickness reload. Good hemostasis was observed. The appendix was removed through the 10 mm port site using an EndoCatch bag. The 10 mm port site fascia and peritoneum were then closed under direct visualization using a Damien-Natalie device and 0 Vicryl suture. The abdomen was desufflated and remaining ports removed. All skin incisions were closed using 4-0 Monocryl running subcuticular sutures. Wounds were then cleaned and covered with Dermabond. The patient tolerated the procedure well. We will start IV normal pain medication as well as a clear liquid diet. When she is tolerating clears and has good pain control with oral pain medications, ambulating well, we will discharge her home. Job ID: [id number] DocumentID: [id number] Dictated Date: 08/07/2020 11:42:38 Certifed Refrigeration Operator Date: 08/07/2020 20:34:48 Dictated By: MARTA TIMMONS MD
== END 2020-08-07 17:05 | disposition home or self-care (01) | DRG 343 ==
LOC: EDUNIT# 19:06 → ER 19:08 → 4TH 20:50
PROVIDERS: ADMIT Surgery; ATTEND Surgery
PROC: 0DTJ4ZZ Resection of Appendix, Percutaneous Endoscopic Approach (ICD-10-PCS; principal; 2020-08-07 10:22)
DX: K35.80 Unspecified acute appendicitis (principal); K38.1 Appendicular concretions
CPT/HCPCS: 36415; 74177; 80053; 81000; 82150; 83690; 84703; 85025; 87081

== ENCOUNTER 2020-08-24 05:30 | Outpatient (RCR) | payer BC ==
[~2020-08-24] VITALS: Ht 165.1 cm; Wt 79.6 kg
== END 2020-08-24 09:56 | disposition home or self-care (01) ==
LOC: PREOP 05:30
PROVIDERS: ATTEND Otolaryngology Otolaryngology/Facial Plastic Surgery
DX: Z01.812 Encounter for preprocedural laboratory examination (principal); J35.1 Hypertrophy of tonsils; Z20.822 Contact with and (suspected) exposure to COVID-19
CPT/HCPCS: 87635

== ENCOUNTER 2020-08-26 05:59 | Day surgery (SDC) | payer BC ==
[~2020-08-26] VITALS: Ht 165 cm; Wt 79.6 kg
[2020-08-26] VITALS (10 sets, daily range): BP systolic 119–145; BP diastolic 66–108
[2020-08-26] MEDS: LACTATED RINGERS 1,000 ML IV PRN ×2 (06:41→08:43)
[2020-08-26 06:51] LABS: BASOPHILS # (AUTO) 0.1 10^3/uL (0.0-0.1); BASOPHILS % (AUTO) 1 % (0-10); EOSINOPHILS # (AUTO) 0.5 10^3/uL (0.0-0.3); EOSINOPHILS % (AUTO) 6 % (0-10); HEMATOCRIT 43 % (35-52); HEMOGLOBIN 14.3 g/dL (11.5-16.0); LYMPHOCYTES # (AUTO) 3.1 10^3/uL (1.0-4.0); LYMPHOCYTES % (AUTO) 40 % (12-44); MEAN CORPUSCULAR HEMOGLOBIN 27 pg (25-34); MEAN CORPUSCULAR HGB CONC 33 g/dL (32-36); MEAN CORPUSCULAR VOLUME 82 fL (80-99); MEAN PLATELET VOLUME 9.2 fL (9.0-12.2); MONOCYTES # (AUTO) 0.7 10^3/uL (0.0-1.0); MONOCYTES % (AUTO) 8 % (0-12); NEUTROPHILS # (AUTO) 3.4 10^3/uL (1.8-7.8); NEUTROPHILS % (AUTO) 43 % (42-75); PLATELET COUNT 360 10^3/uL (130-400); WHITE BLOOD COUNT 7.8 10^3/uL (4.3-11.0)
--- NOTE | 2020-08-26 06:52 | Progress Note-Pre Operative ---
Pre-Operative Progress Note H&P Reviewed The H&P was reviewed, patient examined and no changes noted. Date Seen by Provider: Aug 26, 2020 Time Seen by Provider: : Date H&P Reviewed: Aug 26, 2020 Time H&P Reviewed: :30 Pre-Operative Diagnosis: Bilat Chroinc Ssinusitis, dev septum, bilat hyper of inf turbs NOLA MCNEIL MD Aug 26, 2020 06:52
[2020-08-26 07:06] LABS: EOSINOPHILS % (MANUAL) 8 %; LYMPHOCYTES % (MANUAL) 39 %; MONOCYTES % (MANUAL) 7 %; NEUTROPHILS % (MANUAL) 46 %; RBC MORPH NORMAL
[2020-08-26] MEDS ORDERED: ONDANSETRON 4 MG/2 ML (SDV) Z0FRAN ONE ×2 (07:20→08:32)
[2020-08-26] MEDS ORDERED: fentaNYL INJ 100 MCG/2 ML AMP ONE ×2 (07:20→08:19)
[2020-08-26] MEDS ORDERED: LIDOCAINE PF 2% 5 ML (XYLOCAINE) VIAL ONE (07:20)
[2020-08-26] MEDS ORDERED: MIDAZOLAM 2 MG/2 ML (VERSED) VIAL ONE (07:20)
[2020-08-26] MEDS ORDERED: proPOfol 200 MG/20 ML (DIPRIVAN) VIAL IV ONE ×2 (07:20→07:51)
--- NOTE | 2020-08-26 08:01 | Progress Note-Post Operative ---
Post-Operative Progess Note Surgeon (s)/Tile Molder Hand (s) Surgeon NOLA MCNEIL MD Tile Molder Hand n/a Pre-Operative Diagnosis tonsillar hypertrphy with UAO, right abhijeet Post-Operative Diagnosis same Post-Op Procedure Note Date of Procedure: Aug 26, 2020 Name of Procedure Performed: Tonsillectomy, Right Myringotomy wiht Tube Description & Findings Description and Findings: n/a Anesthesia Type get Estimated Blood Loss minimal Packing none. Specimen(s) collected/removed tonsils NOLA MCNEIL MD Aug 26, 2020 08:01
[2020-08-26] MEDS ORDERED: SEVOFLURANE (ULTANE) 15 ML INHAL SOLN ONE (08:10)
[2020-08-26] MEDS ORDERED: HYDROcodone/APAP 7.5MG-325 MG/15 ML (LORTAB) UDC PO PRN (08:15)
[2020-08-26] MEDS ORDERED: APAP 325 MG/10.15 ML LIQ (TYLENOL) UDC PO PRN (08:15)
[2020-08-26] MEDS ORDERED: NS IV 1000 ML 1,000 ML IV SCH (08:15)
[2020-08-26] MEDS ORDERED: HYDROcodone/APAP 7.5MG-325 MG/15 ML (LORTAB) UDC ONE (09:08)
--- NOTE | 2020-08-26 13:58 | Anesthesia-General Post-Op ---
General Patient Condition Mental Status/LOC: Same as Preop Cardiovascular: Satisfactory Nausea/Vomiting: Absent Respiratory: Satisfactory Pain: Controlled Complications: Absent Post Op Complications Complications None Follow Up Care/Instructions Patient Instructions None needed. Anesthesia/Patient Condition Patient Condition Patient is doing well, no complaints, stable vital signs, no apparent adverse anesthesia problems. No complications reported per nursing. BRUCE GODINEZ CRNA Aug 26, 2020 13:58
== END 2020-08-26 10:50 ==
LOC: SDC 05:59
PROVIDERS: ATTEND Otolaryngology Otolaryngology/Facial Plastic Surgery
DX: J35.3 Hypertrophy of tonsils with hypertrophy of adenoids (principal); J98.8 Other specified respiratory disorders; J03.91 Acute recurrent tonsillitis, unspecified; H65.21 Chronic serous otitis media, right ear; H69.81 Other specified disorders of Eustachian tube, right ear; R19.6 Halitosis
CPT/HCPCS: 36415; 84703; 85007; 85027; 87081